=== PATIENT | male | born 1930 | race Caucasian/White ===

== ENCOUNTER 2018-10-23 09:01 | Inpatient (IN) | payer OTHER ==
[2018-10-23] MEDS ORDERED: MEPERIDINE HCL 25 MG/0.5 ML ONE ×3 (09:21→13:23)
[2018-10-23 09:26] LABS: Absolute Monocytes 0.6 K/uL (0.1-1.3); Absolute Neutrophil 2.4 K/uL (1.8-8.0); Basophils % 0.7 % (0-1.3); Eosinophils % 2.9 % (0-4.4); Hematocrit 39.2 % (39.6-49.0); Lymphocytes % 48.8 % (15.3-44.8); MCH 33.2 pg (27.0-35.0); MCV 97.9 fL (80-100); MPV 8.8 fL (7.6-11.3)
[2018-10-23 09:31] LABS: Protime INR 0.99
[2018-10-23 09:39] LABS: Potassium 3.7 mmol/L (3.5-5.1)
--- NOTE | 2018-10-23 09:46 | RAD REPORT ---
EXAM DESCRIPTION: CT - CTHCSPWOC - 10/23/2018 9:29 am CLINICAL HISTORY: Trip and fall, head and neck injury COMPARISON: None. TECHNIQUE: Axial 5 mm thick images of the head were obtained. Axial 2 mm thick images of the cervic al spine were obtained with sagittal and coronal reconstruction images generated and reviewed. All CT scans are performed using dose optimization technique as appropriate and may include automated exposure control or mA/KV adjustment according to patient size. FINDINGS: No intracranial hemorrhage, mass, edema or acute intracranial finding. No suspicion for acute infarct ion. Moderate severity atrophy and chronic ischemic changes are present. Ventricles are in proportion . Mastoid air cells and paranasal sinuses are clear. No globe or orbit abnormality seen. Cervical body height and alignment are normal. Disc space narrowing is present throughout the cervica l spine. There prominent posterior endplate spur is from C3-C7. Significant facet joint degenerative changes are present throughout the spine. Bilateral bony foraminal encroachment present at C3-4 where there is also central spinal stenosis. Similar spinal stenosis and foraminal stenosis at C4-5 with f oraminal stenosis at C5-6 and mildly at C6-7. No fracture or acute bone process. No paraspinal mass or hematoma. IMPRESSION: No intracranial hemorrhage. Patient has atrophy and chronic ischemic change moderate in severity. Ventricles are in proportion. Advanced cervical spine degenerative change as detailed. No acute findings seen. Central canal detail is inherently limited.
--- NOTE | 2018-10-23 10:10 | EKG ---
Test Date: 2018-10-23 Test Time: 10:07:26 Maternity Nurse: STEVE MEASUREMENT RESULTS: Intervals: Rate: 53 WA: 184 QRSD: 116 QT: 478 QTc: 448 [place]: P: 79 WA: 184 QRS: 8 T: 12 INTERPRETIVE STATEMENTS: Sinus bradycardia Otherwise normal ECG Compared to ECG 03/31/2013 23:24:09 Sinus rhythm no longer present Electronically Signed On 10-23-18 10:10:35 [employer] by Brent Bender
--- NOTE | 2018-10-23 11:28 | ER ---
Nurse's Notes [facility] Name: Maxwell Clark Age: 87 yrs Sex: Male : 1930 Arrival Date: 10/23/2018 Time: 09:07 Bed 6 Private MD: Diagnosis: Displaced intertrochanteric fracture of right femur Presentation: 10/23 09:13 Presenting complaint: EMS states: pt was walking with dressings applied to bilateral sg eyes post eye surgery when he tripped and fell, laceration sustained to occiptal area of head, skin tears noted to right forearm and elbow, right hip pain and right leg noted to be externally rotated, pt remains c-collared and on backboard for transport to radiology. Care prior to arrival: Cervical collar in place. Placed on backboard. IV initiated. 20 GA, in the left antecubital area, Glucose check: 80. Mechanism of Injury: Fall from standing position. Trauma event details: Injury occurred in the [facility], Injury occurred: at home. Injury occurred: October 23, 2018. 09:13 Acuity: IVY 2 sg 09:13 Method Of Arrival: EMS: [facility] 09:15 Transition of care: patient was not received from another setting of care. Onset of hb symptoms was October 23, 2018. Risk Assessment: Do you want to hurt yourself or someone else? Patient reports no desire to harm self or others. Initial Sepsis Screen: Does the patient meet any 2 criteria? No. Patient's initial sepsis screen is negative. Does the patient have a suspected source of infection? No. Patient's initial sepsis screen is negative. Trauma Activation: Alert Physician: ED Physician; Name: ; Notified At: ; Arrived At: Physician: General Surgeon; Name: ; Notified At: ; Arrived At: Physician: Radiology; Name: ; Notified At: ; Arrived At: Physician: Respiratory; Name: ; Notified At: ; Arrived At: Physician: Lab; Name: ; Notified At: ; Arrived At: Historical: - Allergies: 09:22 No Known Allergies; hb - PMHx: : None; hb - Immunization history: Last tetanus immunization: > 10 years ago. - Family history:: not pertinent. - Social history:: Smoking status: Patient/guardian denies using tobacco. - Ebola Screening: : No symptoms or risks identified at this time. - Hospitalizations: : No recent hospitalization is reported. Screenin:17 Abuse screen: Denies threats or abuse. Denies injuries from another. Tuberculosis sg screening: No symptoms or risk factors identified. Never had TB. 09:21 Nutritional screening: No deficits noted. Fall Risk Total Mena Fall Scale indicates hb High Risk Score (45 or more points). Fall prevention measures have been instituted. Side Rails Up X 2 Frequent Obs/Assessments Occuring Family Present and informed to notify staff if the need to leave the bedside As available patient and family educated on Fall Prevention Program and Strategies. Primary Survey: 09:12 A: Airway: patent, No supplemental oxygen in use on arrival. Oral cavity: clear, hb Trachea midline. Breathing/Chest: Respiratory pattern: regular, Respiratory effort: spontaneous, unlabored, Breath sounds: clear, bilaterally. Chest inspection: symmetrical rise and fall of the chest. Circulation: Pulses: palpable . Skin color: pink, Skin temperature: warm, dry. Disability Alert. 10:00 Reassessment Airway Airway Patent Breathing/Chest Respiratory pattern Regular hb Respiratory effort Spontaneous Unlabored Chest inspection Symmetrical Circulation Pulses Palpable Color [place] Disability Alert. 11:00 Reassessment Airway Airway Patent Breathing/Chest Respiratory pattern Regular hb Respiratory effort Spontaneous Unlabored Chest inspection Symmetrical Circulation Pulses Palpable Color [place] Disability Alert. 12:00 Reassessment Airway Airway Patent Breathing/Chest Respiratory pattern Regular ss Respiratory effort Spontaneous Unlabored Chest inspection Symmetrical Circulation Pulses Palpable Color [place] Disability Alert. 13:00 Reassessment Airway Airway Patent Breathing/Chest Respiratory pattern Regular ss Respiratory effort Spontaneous Unlabored Chest inspection Symmetrical Circulation Pulses Palpable Color [place] Disability Alert. 14:00 Reassessment Airway Airway Patent Breathing/Chest Respiratory pattern Regular ss Respiratory effort Spontaneous Unlabored Chest inspection Symmetrical Circulation Pulses Palpable Color [place] Disability Alert. Secondary Survey: 09:12 HEENT: Head Other laceration to back of head Eyes: Other bilateral eyes covered with hb gauze from physician's office. Gastrointestinal: No deficits noted. : No deficits noted. No signs and/or symptoms were reported regarding the genitourinary system. Musculoskeletal: Reports pain in right arm and right hip. Right leg externally rotated and shortened. Assessment: 09:15 General: Appears in no apparent distress. uncomfortable, Behavior is calm, cooperative. hb Pain: Pain currently is 7 out of 10 on a pain scale. Neuro: Level of Consciousness is awake, alert, obeys commands, Oriented to person, place, time, situation. EENT: No signs and/or symptoms were reported regarding the EENT system. Cardiovascular: Heart tones S1 S2 present Capillary refill < 3 seconds Patient's skin is warm and dry. Respiratory: Airway is patent Trachea midline Respiratory effort is even, unlabored, Respiratory pattern is regular, symmetrical, Breath sounds are clear bilaterally. GI: Abdomen is non-distended, Bowel sounds present X 4 quads. Abd is soft and non tender X 4 quads. : No signs and/or symptoms were reported regarding the genitourinary system. Derm: Skin is pink, warm \T\ dry. Musculoskeletal: Reports pain in right upper arm and right hip. Laceration to back of head noted, not bleeding at this time. 10:19 Reassessment: Patient appears in no apparent distress at this time. Patient and/or sg family updated on plan of care and expected duration. Pain level reassessed. Patient is alert, oriented x 3, equal unlabored respirations, skin warm/dry/pink. pt removed from blackboard per ERP order, pt reports feeling better after removal from backboard. 11:00 Reassessment: Patient appears in no apparent distress at this time. Patient and/or hb family updated on plan of care and expected duration. Pain level reassessed. Patient is alert, oriented x 3, equal unlabored respirations, skin warm/dry/pink. 11:00 Cardiovascular: Pulses are palpable in right radial artery, right posterior tibial sg artery, left radial artery and left posterior tibial artery. Musculoskeletal: Circulation, motion, and sensation intact. Capillary refill is brisk, in bilateral fingers. toes. Swelling absent. Musculoskeletal: pt reports ROM to be limited in right leg d/t pain. 12:00 Reassessment: Patient appears in no apparent distress at this time. Patient and/or ss family updated on plan of care and expected duration. Pain level reassessed. Patient is alert, oriented x 3, equal unlabored respirations, skin warm/dry/pink. 13:00 Reassessment: Patient appears in no apparent distress at this time. No changes from ss previously documented assessment. Patient and/or family updated on plan of care and expected duration. Pain level reassessed. Patient is alert, oriented x 3, equal unlabored respirations, skin warm/dry/pink. 14:00 Reassessment: Patient appears in no apparent distress at this time. Patient and/or ss family updated on plan of care and expected duration. Pain level reassessed. Patient is alert, oriented x 3, equal unlabored respirations, skin warm/dry/pink. Vital Signs: 09:15 BP 156 / 97; Pulse 66; Resp 17; Temp 97.7; Pulse Ox 100% on R/A; Weight 106.59 kg (R); sg Height 6 ft. 0 in. (182.88 cm); Pain 7/10; 10:15 BP 172 / 71; Pulse 60; Resp 16; Temp 97.7; Pulse Ox 100% on R/A; sg 11:00 BP 163 / 70; Pulse 58; Resp 15; Pulse Ox 100% on R/A; Pain 4/10; hb 12:00 BP 147 / 74; Pulse 70; Resp 15; Pulse Ox 100% on R/A; Pain 3/10; ss 13:00 BP 159 / 74; Pulse 74; Resp 16; Pulse Ox 100% on R/A; Pain 4/10; ss 14:00 BP 146 / 68; Pulse 69 MON; Resp 17; Pulse Ox 96% on R/A; Pain 4/10; sg 09:15 Body Mass Index 31.87 (106.59 kg, 182.88 cm) sg [place] Coma Score: 09:15 Eye Response: spontaneous(4). Verbal Response: oriented(5). Motor Response: obeys sg commands(6). Total: 15. 10:15 Eye Response: spontaneous(4). Verbal Response: oriented(5). Motor Response: obeys sg commands(6). Total: 15. 14:00 Eye Response: spontaneous(4). Verbal Response: oriented(5). Motor Response: obeys sg commands(6). Total: 15. Trauma Score (Adult): 09:15 Eye Response: spontaneous(1); Verbal Response: oriented(1); Motor Response: obeys sg commands(2); Systolic BP: > 89 mm Hg(4); Respiratory Rate: 10 to 29 per min(4); [place] Score: 15; Trauma Score: 12 10:15 Eye Response: spontaneous(1); Verbal Response: oriented(1); Motor Response: obeys sg commands(2); Systolic BP: > 89 mm Hg(4); Respiratory Rate: 10 to 29 per min(4); [place] Score: 15; Trauma Score: 12 11:00 Eye Response: spontaneous(1); Verbal Response: oriented(1); Motor Response: obeys hb commands(2); Systolic BP: > 89 mm Hg(4); Respiratory Rate: 10 to 29 per min(4); [place] Score: 15; Trauma Score: 12 12:00 Eye Response: spontaneous(1); Verbal Response: oriented(1); Motor Response: obeys ss commands(2); Systolic BP: > 89 mm Hg(4); Respiratory Rate: 10 to 29 per min(4); [place] Score: 15; Trauma Score: 12 13:00 Eye Response: spontaneous(1); Verbal Response: oriented(1); Motor Response: obeys ss commands(2); Systolic BP: > 89 mm Hg(4); Respiratory Rate: 10 to 29 per min(4); [place] Score: 15; Trauma Score: 12 14:00 Eye Response: spontaneous(1); Verbal Response: oriented(1); Motor Response: obeys sg commands(2); Systolic BP: > 89 mm Hg(4); Respiratory Rate: 10 to 29 per min(4); [place] Score: 15; Trauma Score: 12 ED Course: 09:07 Patient arrived in ED. rn 09:07 Christos Lauren MD is Attending Physician. rn 09:13 Jadiel Foster, RN is Primary Nurse. sg 09:15 Triage completed. sg 09:16 Arm band placed on right wrist. hb 09:16 Patient has correct armband on for positive identification. Placed in gown. Bed in low hb position. Call light in reach. Side rails up X2. monitoring engineer on. Pulse ox on. NIBP on. 09:16 Thermoregulation: warm blanket given to patient. hb 09:16 Patient maintains SpO2 saturation greater than 95% on room air. hb 09:21 CT completed. Patient tolerated procedure well. Patient moved to CT via stretcher. Patient moved back from CT. 09:23 Patient moved to radiology. 10:29 Assist provider with laceration repair on back of head that was between 2.6 to 7.5 cm hb using alise x 5. Set up tray. Performed by Christos Lauren MD Patient tolerated well. 11:27 Chauncey Carson MD is Hospitalizing Provider. rn 14:25 Patient admitted, IV remains in place. ss Administered Medications: 09:17 Drug: Demerol 25 mg Route: IVP; Site: left antecubital; hb 10:15 Follow up: Response: No adverse reaction; Pain is unchanged, physician notified sg 10:33 Drug: Demerol 25 mg Route: IVP; Site: left antecubital; hb 11:01 Follow up: Response: No adverse reaction; Pain is decreased hb 13:19 Drug: Demerol 25 mg Route: IVP; Site: left antecubital; hb 14:00 Follow up: Response: No adverse reaction; Pain is decreased hb 14:15 Drug: Tetanus-Diphtheria Toxoid Adult 0.5 ml {Customer Consulting Manager: [employer]. Exp: 12/07/2020. Lot #: [id number]. } Route: IM; Site: right deltoid; 14:40 Follow up: Response: No adverse reaction hb Intake: 09:15 PO: 0ml; Total: 0ml. sg Outcome: 11:28 Decision to Hospitalize by Provider. rn 11:39 Patient's length of stay in the Emergency Department was greater than 2 hours. hb admission ordered, awaiting room assignment Patient's length of stay extended due to 14:24 Admitted to Med/surg accompanied by tech, family with patient, via stretcher, room 201. ss 14:24 Condition: stable 14:24 Instructed on the need for admit, Demonstrated understanding of instructions. 14:49 Patient left the ED. ss Signatures: Jadiel Foster RN RN sg Jones, Susan sj Nieto, Roman, MD MD rn Smirch, Shelby, RN RN Lindsay Richard RN RN hb
--- NOTE | 2018-10-23 11:29 | EDPHYS ---
Physician Documentation [facility] Name: Maxwell Clark Age: 87 yrs Sex: Male : 1930 Arrival Date: 10/23/2018 Time: 09:07 Bed 6 Private MD: ED Physician Christos Lauren HPI: 10/23 09:11 This 87 yrs old Male presents to ER via Unassigned with complaints of fall. rn 09:11 The patient presents with an injury, pain. The complaints affect the right hip. Onset: rn The symptoms/episode began/occurred just prior to arrival. Modifying factors: The symptoms are alleviated by nothing. the symptoms are aggravated by movement. Severity of symptoms: At their worst the symptoms were moderate, in the emergency department the symptoms are unchanged. The patient has not experienced similar symptoms in the past. Just had eye surgery yesterday for eyelid drooping, both eyes bandaged, was being assisted out of garage, tripped on uneven floor, hit back of head, no LOC, denies blood thinners, reports scraped right arm and right hip hurts to move. . Historical: - Allergies: :22 No Known Allergies; hb - PMHx: :22 None; hb - Immunization history: Last tetanus immunization: > 10 years ago. - Family history:: not pertinent. - Social history:: Smoking status: Patient/guardian denies using tobacco. - Ebola Screening: : No symptoms or risks identified at this time. - Hospitalizations: : No recent hospitalization is reported. ROS: 09:11 Constitutional: Negative for fever, chills, and weight loss, Eyes: Negative for injury rn Neck: No neck pain or swelling Cardiovascular: Negative for chest pain, palpitations, and edema, Respiratory: Negative for shortness of breath, cough, wheezing, and pleuritic chest pain, Abdomen/GI: Negative for abdominal pain, nausea, vomiting, diarrhea, and constipation, MS/Extremity: + right arm and right hip pain Skin: Negative for injury, rash, and discoloration, Neuro: Negative for headache, weakness, numbness, tingling, and seizure. Exam: 09:11 Constitutional: This is a well developed, well nourished patient who is awake, alert, rn and in no acute distress. Head/Face: Normocephalic, dry blood right posterior scalp, unable to visualized laceration with ccollar on, but no active bleeding or pooling. Eyes: Bilateral bandages on eyes that are undisturbed. Neck: in ccollar, no midline tenderness Cardiovascular: Regular rate and rhythm with a normal S1 and S2. No gallops, murmurs, or rubs. No pulse deficits. Respiratory: Lungs have equal breath sounds bilaterally, clear to auscultation. No increased work of breathing, no retractions or nasal flaring. Abdomen/GI: soft, non-tender MS/ Extremity: Pulses equal, no cyanosis. Neurovascular intact. + RLE externally rotated and shortened, with painful ROM right hip. Neuro: Awake and alert, GCS 15, oriented to person, place, time, and situation. Cranial nerves II-XII grossly intact. Motor strength 5/5 in all extremities. Sensory grossly intact. Vital Signs: 09:15 BP 156 / 97; Pulse 66; Resp 17; Temp 97.7; Pulse Ox 100% on R/A; Weight 106.59 kg (R); sg Height 6 ft. 0 in. (182.88 cm); Pain 7/10; 10:15 BP 172 / 71; Pulse 60; Resp 16; Temp 97.7; Pulse Ox 100% on R/A; sg 11:00 BP 163 / 70; Pulse 58; Resp 15; Pulse Ox 100% on R/A; Pain 4/10; hb 12:00 BP 147 / 74; Pulse 70; Resp 15; Pulse Ox 100% on R/A; Pain 3/10; ss 13:00 BP 159 / 74; Pulse 74; Resp 16; Pulse Ox 100% on R/A; Pain 4/10; ss 14:00 BP 146 / 68; Pulse 69 MON; Resp 17; Pulse Ox 96% on R/A; Pain 4/10; sg 09:15 Body Mass Index 31.87 (106.59 kg, 182.88 cm) John Coma Score: 09:15 Eye Response: spontaneous(4). Verbal Response: oriented(5). Motor Response: obeys sg commands(6). Total: 15. 10:15 Eye Response: spontaneous(4). Verbal Response: oriented(5). Motor Response: obeys sg commands(6). Total: 15. 14:00 Eye Response: spontaneous(4). Verbal Response: oriented(5). Motor Response: obeys sg commands(6). Total: 15. Trauma Score (Adult): 09:15 Eye Response: spontaneous(1); Verbal Response: oriented(1); Motor Response: obeys sg commands(2); Systolic BP: > 89 mm Hg(4); Respiratory Rate: 10 to 29 per min(4); Warren Score: 15; Trauma Score: 12 10:15 Eye Response: spontaneous(1); Verbal Response: oriented(1); Motor Response: obeys sg commands(2); Systolic BP: > 89 mm Hg(4); Respiratory Rate: 10 to 29 per min(4); John Score: 15; Trauma Score: 12 11:00 Eye Response: spontaneous(1); Verbal Response: oriented(1); Motor Response: obeys hb commands(2); Systolic BP: > 89 mm Hg(4); Respiratory Rate: 10 to 29 per min(4); John Score: 15; Trauma Score: 12 12:00 Eye Response: spontaneous(1); Verbal Response: oriented(1); Motor Response: obeys ss commands(2); Systolic BP: > 89 mm Hg(4); Respiratory Rate: 10 to 29 per min(4); John Score: 15; Trauma Score: 12 13:00 Eye Response: spontaneous(1); Verbal Response: oriented(1); Motor Response: obeys ss commands(2); Systolic BP: > 89 mm Hg(4); Respiratory Rate: 10 to 29 per min(4); John Score: 15; Trauma Score: 12 14:00 Eye Response: spontaneous(1); Verbal Response: oriented(1); Motor Response: obeys sg commands(2); Systolic BP: > 89 mm Hg(4); Respiratory Rate: 10 to 29 per min(4); John Score: 15; Trauma Score: 12 Laceration: 10:25 Wound Repair of 5cm ( 2.0in ) subcutaneous laceration to right posterior scalp. Distal rn neuro/vascular/tendon intact. Wound prep: Extensive cleansing by nurse, Wound irrigation by nurse. Skin closed with 5 wide salud Salud using staple gun. Dressed with Kerlix. Patient tolerated well. MDM: 09:07 Patient medically screened. rn 11:26 Differential diagnosis: closed fracture, contusion. Data reviewed: vital signs, nurses rn notes, lab test result(s), EKG, radiologic studies, and as a result, I will admit patient. Counseling: I had a detailed discussion with the patient and/or guardian regarding: the historical points, exam findings, and any diagnostic results supporting the discharge/admit diagnosis, lab results, radiology results, the need for further work-up and treatment in the hospital. Response to treatment: the patient's symptoms have markedly improved after treatment, and as a result, I will admit patient. Admission orders: after a detailed discussion of the patient's condition and case, the admit orders are written by me. ED course: + right hip fracture, will admit to hospitalist service with Dr. Rinaldi consult.. 10/23 09:09 Order name: CBC with Diff; Complete Time: 09:44 rn 10/23 09:09 Order name: Basic Metabolic Panel; Complete Time: 09:44 rn 10/23 09:09 Order name: PT-INR; Complete Time: 09:44 rn 10/23 09:09 Order name: Ptt, Activated; Complete Time: 09:44 rn 10/23 10:25 Order name: TS 10/23 11:12 Order name: ABO/RH no charge; Complete Time: 11:29 EDIN 10/23 09:09 Order name: CT Head C Spine rn 10/23 09:09 Order name: XRAY Pelvis rn 10/23 09:09 Order name: XRAY Femur RIGHT rn 10/23 09:48 Order name: CT; Complete Time: 10:10 EDIN 10/23 11:46 Order name: Type and Screen; Complete Time: 12:09 EDMS 10/23 12:19 Order name: RAD; Complete Time: 13:30 EDMS 10/23 12:19 Order name: RAD; Complete Time: 13:30 EDMS 10/23 09:09 Order name: IV Start; Complete Time: 09:17 rn 10/23 09:09 Order name: EKG; Complete Time: 09:10 rn 10/23 09:09 Order name: EKG - Nurse/Tech; Complete Time: 10:29 rn Administered Medications: 09:17 Drug: Demerol 25 mg Route: IVP; Site: left antecubital; hb 10:15 Follow up: Response: No adverse reaction; Pain is unchanged, physician notified sg 10:33 Drug: Demerol 25 mg Route: IVP; Site: left antecubital; hb 11:01 Follow up: Response: No adverse reaction; Pain is decreased hb 13:19 Drug: Demerol 25 mg Route: IVP; Site: left antecubital; hb 14:00 Follow up: Response: No adverse reaction; Pain is decreased hb 14:15 Drug: Tetanus-Diphtheria Toxoid Adult 0.5 ml {Channel Marketing Specialist: [employer]. Exp: sg 12/07/2020. Lot #: [id number]. } Route: IM; Site: right deltoid; 14:40 Follow up: Response: No adverse reaction hb Disposition: 10/23/18 11:28 Hospitalization ordered by Chauncey Carson for Inpatient Admission. Preliminary diagnosis is Displaced intertrochanteric fracture of right femur. - Bed requested for Telemetry/MedSurg (Inpatient). - Status is Inpatient Admission. ss - Condition is Stable. - Problem is new. - Symptoms have improved. UTI on Admission? No Signatures: Dispatcher [employer] EDAmalia Villanueva RN RN Jadiel Foster RN RN Christos Lauren MD MD rn Smirch, Shelby, RN RN Lindsay Richard RN RN hb Herrera, Deanna 3 Corrections: (The following items were deleted from the chart) 12: 11:28 Hospitalization Ordered by Chauncey Carson MD for Inpatient Admission. Preliminary 3 diagnosis is Displaced intertrochanteric fracture of right femur. Bed requested for Telemetry/MedSurg (Inpatient). Status is Inpatient Admission. Condition is Stable. Problem is new. Symptoms have improved. UTI on Admission? No. rn 13:34 12:27 10/23/2018 11:28 Hospitalization Ordered by Chauncey Carson MD for Inpatient dw Admission. Preliminary diagnosis is Displaced intertrochanteric fracture of right femur. Bed requested for Telemetry/MedSurg (Inpatient). Status is Inpatient Admission. Condition is Stable. Problem is new. Symptoms have improved. UTI on Admission? No. dh3 14:49 13:34 10/23/2018 11:28 Hospitalization Ordered by Chauncey Carson MD for Inpatient ss Admission. Preliminary diagnosis is Displaced intertrochanteric fracture of right femur. Bed requested for Telemetry/MedSurg (Inpatient). Status is Inpatient Admission. Condition is Stable. Problem is new. Symptoms have improved. UTI on Admission? No. dw
--- NOTE | 2018-10-23 12:17 | RAD REPORT ---
EXAM DESCRIPTION: RAD - Pelvis - 10/23/2018 9:54 am CLINICAL HISTORY: Pelvic pain status post fall FINDINGS: Intertrochanteric fracture involves the proximal right femur extending into the greater an d lesser trochanters. Lesser trochanter is avulsed medially. Moderate displacement of fracture fragme nts. No dislocation seen
--- NOTE | 2018-10-23 12:18 | RAD REPORT ---
EXAM DESCRIPTION: RAD - Femur Right - 10/23/2018 9:55 am CLINICAL HISTORY: Right leg pain status post fall FINDINGS: Intertrochanteric fracture involves the proximal right femur extending into the greater and lesser tr ochanters. Lesser trochanter is avulsed medially. Moderate displacement of fracture fragments. No dislocation seen
[2018-10-23] MEDS ORDERED: TETANUS & DIPHTHERIA TOX,ADULT 0.5 ML VIAL ONE (14:21)
[2018-10-23 15:41] VITALS: BMI 27.2
[2018-10-23] MEDS: NA CHLORIDE 0.9% 1,000 ML IV SCH (16:38)
[2018-10-23] MEDS: MORPHINE 2 MG/ML SYR IV PRN ×2 (16:39→21:46)
[2018-10-23] MEDS ORDERED: POTASSIUM 25 MEQ EFFERV TAB PO ONE (19:04)
--- NOTE | 2018-10-23 21:58 | P.HP ---
Certification for Inpatient Patient admitted to: Inpatient With expected LOS: >2 Midnights Practitioner: I am a practitioner with admitting privileges, knowledge of patient current condition, hospital course, and medical plan of care. Services: Services provided to patient in accordance with Admission requirements found in Title 42 Section 412.3 of the Code of Federal Regulations Patient History Date of Service: 10/24/18 Reason for admission: Fall History of Present Illness: This is a 87-year-old male with no past medical history admitted for a fall. Per patient, he had eyelid surgery with Dr. Banerjee. When they got home, he stepped on an uneven floor and fell on his right side. He was having a lot of pain on the right leg which brought him to the hospital. In the ER, he was evaluated with imaging which showed a right intertrochanteric fracture of the femur. He also had a laceration to the back of the head, which required alise. He also noted a laceration on the right elbow. He was admitted for further evaluation/treatment. At the time of my exam, patient was in mild distress secondary to pain, he was hemodynamically stable and otherwise had no complaints. Allergies No Known Allergies Allergy (Verified 04/01/13 01:36) Home Medications: Acetaminophen [Arthritis Pain Relief] 650 mg PO DAILY 10/23/18 Ketoconazole 1 jassi TP BID 10/23/18 Lisinopril 10 mg PO BEDTIME 10/23/18 Lutein 20 mg PO DAILY 10/23/18 Multivitamin [Multivitamins] 1 cap PO DAILY 10/23/18 Wise-3 Fatty Acids/Fish Oil [Fish Oil 1,000 mg Capsule] 1,000 mg PO DAILY 10/23 Pantoprazole Sodium 40 mg PO DAILY 10/23/18 - Past Medical/Surgical History Has patient received pneumonia vaccine in the past: Yes Diabetic: No -: arthritis -: abd. exploratory sx -: bilateral cataracts sx -: tonsillectomy -: broken wrist repair -: anal fistula -: bilateral eyelid sx 10/22/18 - Social History Smoking Status: Never smoker Alcohol use: No CD- Drugs: No Caffeine use: Yes Place of Residence: Home Review of Systems General: Unremarkable Eyes: Eyelid Inflammation (Status post surgery), As per HPI ENT: Unremarkable Respiratory: Unremarkable Cardiovascular: Unremarkable Gastrointestinal: Unremarkable Genitourinary: Unremarkable Musculoskeletal: Leg Pain, As per HPI Integumentary: Unremarkable Neurological: Unremarkable Lymphatics: Unremarkable Physical Examination - Vital Signs Temperature: 97.0 F Blood Pressure: 164/75 Pulse: 62 Respirations: 18 Pulse Ox (%): 95 - Physical Exam General: Alert, Oriented x3, Mild distress HEENT: Atraumatic, PERRLA, Mucous membr. moist/pink, EOMI, Sclerae nonicteric Neck: Supple, 2+ carotid pulse no bruit, No LAD, Without JVD or thyroid abnormality Respiratory: Clear to auscultation bilaterally, Normal air movement Cardiovascular: Regular rate/rhythm, Normal S1 S2 Gastrointestinal: Normal bowel sounds, No tenderness Musculoskeletal: Tenderness (With any movement of hip area), Other (Laceration on right elbow. No pain or crepitation on joint movement at the elbow, shoulder or wrist) Integumentary: Other (Laceration to back of head, with alise in place. No active bleeding noted) Neurological: Normal speech, Normal tone, Normal affect Lymphatics: No axilla or inguinal lymphadenopathy - Studies Laboratory Data (last 24 hrs) 10/23/18 09:12: PT 11.7, INR 0.99, APTT 25.1 10/23/18 09:12: Sodium 142, Potassium 3.7, BUN 13, Creatinine 1.00, Glucose 107 H 10/23/18 09:12: WBC 6.2, Hgb 13.3 L, Hct 39.2 L, Plt Count 178 Assessment and Plan - Plan THis is a 87 yr old male with: s/p mechanical fall Right displaced intertrocanteric fracture of the femur Dr. Rinaldi consulted. Pain control NPO after midnight DVT prophylaxis: SCDs GI prophylaxis: None Diet: Regular diet, NPO after midnight Disposition: Pending orthopedic surgery evaluation, symptomatic improvement. Continue pain control. - Advance Directives Does patient have a Living Will: Yes Does patient have a Durable POA for Healthcare: Yes Physician Review: Patient Assessed, Agree with Above Assessment and Plan Time Spent Managing Pts Care (In Minutes): 55
[2018-10-24] MEDS: MORPHINE 2 MG/ML SYR IV PRN ×4 (02:15→21:21)
--- NOTE | 2018-10-24 05:16 | CON ---
Date of Consultation: 10/23/2018 History Of Present Illness: This is my first time seeing this patient to my knowledge. He is an 87- year-old male who unfortunately fell earlier today injuring his right lower extremity as well as his right elbow and his head. He was seen and examined in the emergency department where he had alise placed to his scalp. He also has a bandage on his elbow from a skin tear. X-rays; however, unfortun ately demonstrated a displaced intertrochanteric femur fracture on the right. On further review of h is history, family states that he is highly active and he does not use assistive devices to walk. Ot herwise, medically, he apparently is doing fairly well. He has had a recent history of eye surgery, but this appears to be doing well. With palpation of all his long bones or joints, he does have some tenderness of his right elbow; however, he has full range of motion without crepitation. With regar d to his right lower extremity, he has no pain at the elbow or knee; however, any movement or manipul ation of the hip causes pain. Review of x-rays does demonstrate a displaced intertrochanteric fractu re on the right. Assessment: Gentleman with a bruise to his elbow as well as a laceration to his scalp, which was sonja ated by alise also with a displaced right intertrochanteric fracture. Plan: At this time, I spoke with the hospitalist who feels that he is appropriate for surgical inter vention. They will make him n.p.o. after midnight and use SCDs. I have discussed with both he and saad is family risks, benefits, and alternatives to operative intervention. At this time, we will plan fo r closed reduction and intramedullary jonathan fixation tomorrow at noon. He says he understands these things as presented and all of his questions have been answered. /WILLIS Voice ID: [id number] Report ID: [id number]
[2018-10-24 05:27] LABS: Absolute Lymphocytes (CBC) 1.3 K/uL (0.7-4.9); Absolute Neutrophil 5.4 K/uL (1.8-8.0); Basophils % 0.5 % (0-1.3); Eosinophils % 0.4 % (0-4.4); Hematocrit 32.8 % (39.6-49.0); MCH 33.4 pg (27.0-35.0); MCV 96.8 fL (80-100); MPV 9.4 fL (7.6-11.3); Monocytes % 12.8 % (3.3-12.3); RBC Red Blood Cell Count 3.39 M/uL (4.33-5.43)
[2018-10-24] MEDS: NA CHLORIDE 0.9% 1,000 ML IV SCH ×2 (05:37→22:28)
[2018-10-24 05:44] LABS: ALT/SGPT 16 U/L (12-78); AST/SGOT 11 U/L (15-37); Alkaline Phosphatase 76 U/L (45-117); BUN Blood Urea Nitrogen 11 mg/dL (7-18); Bicarbonate 29 mmol/L (21-32); Bilirubin Total 0.6 mg/dL (0.2-1.0); Glucose Level 111 mg/dL (74-106); Protein, Total 6.3 g/dL (6.4-8.2); Sodium Level 139 mmol/L (136-145)
[2018-10-24 07:03] LABS: Phosphorus 2.6 mg/dL (2.5-4.9)
[2018-10-24] MEDS ORDERED: PROPOFOL 200 MG/20 ML VIAL IV ONE (11:26)
[2018-10-24] MEDS ORDERED: FENTANYL CITR 100 MCG/2 ML ONE ×2 (11:26→12:40)
[2018-10-24] MEDS ORDERED: LIDOCAINE 2% MPF 5 ML VIAL ONE (11:27)
[2018-10-24] MEDS ORDERED: Ringers Lactate 1,000 ML IV ONE ×2 (11:34→13:45)
[2018-10-24] MEDS ORDERED: TRANEXAMIC ACID 1,000 MG in NA CHLORIDE 0.9% 50 ML IV ONE (12:04)
--- NOTE | 2018-10-24 12:04 | P.PN ---
Subjective Date of Service: 10/24/18 Chief Complaint: Fall Subjective: No new changes, No C/O voiced Patient seen and examined at bedside. Family at bedside. Chart reviewed and case discussed with nursing staff. Review of Systems As noted Physical Examination - Vital Signs Temperature: 97.0 F Blood Pressure: 164/75 Pulse: 62 Respirations: 18 Pulse Ox (%): 95 - Physical Exam General: Alert, In no apparent distress, Oriented x3 HEENT: Atraumatic, PERRLA, EOMI Neck: Supple, JVD not distended Respiratory: Clear to auscultation bilaterally, Normal air movement Cardiovascular: Regular rate/rhythm, Normal S1 S2 Gastrointestinal: Normal bowel sounds, No tenderness Musculoskeletal: Tenderness (With any movement of hip) Integumentary: Other (Laceration of right elbow, scalp. No active bleeding noted) Neurological: Normal speech, Normal tone, Normal affect Lymphatics: No axilla or inguinal lymphadenopathy Assessment And Plan - Plan THis is a 87 yr old male with: s/p mechanical fall Right displaced intertrocanteric fracture of the femur Dr. Rinaldi consulted. Recommendations appreciated. Pain control He is pending his surgery today. DVT prophylaxis: SCDs GI prophylaxis: None Diet: NPO for surgery, will restart regular diet when tolerating. Disposition: Pending hip surgery. He will need rehab/physical therapy post surgery. We will get social work involved for discharge planning Physician Review: Patient Assessed, Agree with Above Assessment and Plan Time Spent Managing PTS Care (In Minutes): 30
[2018-10-24] MEDS ORDERED: CEFAZOLIN 1GM (PREMIX IV) 2 GM/100 ML BAG ONE (12:13)
[2018-10-24] MEDS ORDERED: EPHEDRINE SULF 50 MG/10 ML SYR ONE (12:46)
--- NOTE | 2018-10-24 14:24 | P.BOP ---
Preoperative diagnosis: right proximal femur fracture Postoperative diagnosis: same Primary procedure: right CAMERON fixation of hip Estimated blood loss: 150 ccs Anesthesia: General Transferred to: Recovery Room Condition: Good
--- NOTE | 2018-10-24 16:28 | RAD REPORT ---
EXAM DESCRIPTION: RAD - Hip In Or - 10/24/2018 3:19 pm FINDINGS: There were 7 portable C-arm views obtained during fluoroscopic assisted placement of fract ure fixation hardware. Fluoro time was 6.3 minutes. Spot images show stepwise placement of fracture fixation hardware. No suspicious or unexpected findin g.
[2018-10-24] MEDS: ONDANSETRON 4 MG/2 ML VIAL IV PRN ×2 (18:03→22:24)
[2018-10-25] MEDS ORDERED: CEFAZOLIN/NS 1gm 1 GM/50 ML BAG IVPB SCH (01:00)
[2018-10-25] MEDS ORDERED: CEFAZOLIN 1GM (PREMIX IV) 1 GM/50 ML BAG ONE (01:39)
--- NOTE | 2018-10-25 01:50 | OP ---
Date of Procedure: 10/24/2018 Surgeon: Jadiel Rinaldi MD Preoperative Diagnosis: Right proximal femur fracture. Postoperative Diagnoses: Right proximal femur fracture with intertrochanteric fracture and subtrocha nteric features. Procedure: Combination of open and closed reduction with intramedullary jonathan fixation using the Biome t nail. Estimated Blood Loss: 150 cc. Complications: There were no complications. Specimens: No pathology specimens sent. Indications For Operation: Mr. Clark is an 87-year-old male who unfortunately fell injuring his rig ht lower extremity. He was seen and examined in the emergency department where x-rays were taken, wh ich demonstrated an abrasion to his elbow as well as pain in his hip. X-rays of his hip demonstrated a comminuted proximal femur fracture. All risks, benefits, and alternatives to fixation were discus sed with the patient and the family. They state they understand things as presented and wished to pr oceed. Description Of Procedure: The patient was taken to the operating room and placed in the supine posit ion. General anesthesia was obtained by staff. Following this, he was then placed on the fracture t able. All his bony prominences being checked. Attempts to close reduce this were performed. Once t raction was performed on the leg, it was obvious that this had subtrochanteric features as well as an intertrochanteric component that appeared to be multi-fragmentary including the base of the neck to the IP area as well as a very large portion associated with the lesser trochanter. Traction and manu al reduction techniques were unable to obtain an excellent reduction, however, was better aligned. F ollowing this, the right lower extremity was then prepped and draped in usual sterile fashion for pro cedure. Following this, the guide for the intramedullary jonathan was placed next to the presumed tip of the greater trochanter and an incision was made directly to the lateral thigh. This leads down to th e fracture itself. Combination of bone hook and manipulative reduction techniques using internal and external rotation as well as traction and adductions were used which obtained a fairly good alignmen t. Unfortunately, the pieces were segmentally fragmented not allowing an anatomic reduction. Follow ing this being achieved, attention was then turned superiorly where a standard incision was made slig htly higher than normal to allow for placement of a more medially directed entry portal. Attempts at medially directing this were made somewhat more difficult by the basicervical component of the fract ure. Unfortunately, this did end up more lateral than desired and near the intertrochanteric portion of the fracture. Attempts were made to more medialize this before making the final hole and passing a wire. However, it was extremely difficult to bring these as medial as possible and the entry ream er was then used. Decision was made to proceed with a long intramedullary nail based on its signific ant instability and it was then sequentially reamed up to a size 12-1/2 holding the reduction as best can with a bone hook. The foot is in external rotation to allow for better alignment, placing the r od also externally rotated to match the femoral head and neck. The jonathan was then placed at the approp riate depth and biplanar C-arm radiography were used to confirm placement of the cephalomedullary scr ew. The compression technique was used, which did help a little to bring the head and neck portion c loser to the shaft. After this, an antirotation screw was placed as well as a distal locking screw u sing the perfect [place] technique. The wounds were then copiously irrigated and the fascia was close d in a watertight fashion using heavy Vicryl followed by closure of the skin with Vicryl followed by alise. The patient was then awakened and taken to recovery room in good condition. There were no complications. JAVAD Voice ID: [id number] Report ID: [id number]
[2018-10-25] MEDS: PANTOPRAZOLE 40MG TABLET PO SCH (06:02)
[2018-10-25 06:35] LABS: Absolute Lymphocytes (CBC) 1.4 K/uL (0.7-4.9); Absolute Monocytes 1.7 K/uL (0.1-1.3); Absolute Neutrophil 9.7 K/uL (1.8-8.0); Basophils % 0.3 % (0-1.3); Hematocrit 28.6 % (39.6-49.0); Lymphocytes % 11.1 % (15.3-44.8); MCH 33.5 pg (27.0-35.0); MCV 96.6 fL (80-100); MPV 9.2 fL (7.6-11.3); Monocytes % 13.2 % (3.3-12.3); RBC Red Blood Cell Count 2.96 M/uL (4.33-5.43)
[2018-10-25 06:57] LABS: Albumin 2.6 g/dL (3.4-5.0); Bilirubin Total 0.5 mg/dL (0.2-1.0); Potassium 4.3 mmol/L (3.5-5.1); Protein, Total 5.8 g/dL (6.4-8.2)
[2018-10-25] MEDS: MORPHINE 2 MG/ML SYR IV PRN (07:56)
[2018-10-25] MEDS: ONDANSETRON 4 MG/2 ML VIAL IV PRN (07:57)
[2018-10-25] MEDS: NA CHLORIDE 0.9% 1,000 ML IV SCH ×2 (09:56→20:51)
[2018-10-25] MEDS: CEFAZOLIN/SWI 1gm 1 GM/10 ML SYR IV SCH ×2 (09:57→16:52)
[2018-10-25] MEDS: DOCUSATE NA 100 MG CAP PO PRN ×2 (10:50→20:51)
--- NOTE | 2018-10-25 11:49 | P.PN ---
Subjective Date of Service: 10/25/18 Chief Complaint: Fall Subjective: No new changes, No C/O voiced, Improving Patient seen and examined at bedside. Family at bedside. Chart reviewed and case discussed with nursing staff. Reports improved pain. States he has not had a bowel movement for a while, he does not want to eat until he has a bowel movement. Review of Systems As noted Physical Examination - Vital Signs Temperature: 98.4 F Blood Pressure: 130/60 Pulse: 91 Respirations: 16 Pulse Ox (%): 90 - Physical Exam General: Alert, In no apparent distress, Oriented x3 HEENT: Atraumatic, PERRLA, EOMI Neck: Supple, JVD not distended Respiratory: Clear to auscultation bilaterally, Normal air movement Cardiovascular: Regular rate/rhythm, Normal S1 S2 Gastrointestinal: Normal bowel sounds, No tenderness Musculoskeletal: Tenderness Integumentary: No rashes Neurological: Normal speech, Normal tone, Normal affect Assessment And Plan - Plan THis is a 87 yr old male with: s/p mechanical fall Right displaced intertrocanteric fracture of the femur Dr. Rinaldi consulted. Recommendations appreciated. Status post combination located close reduction with jonathan fixation, postop day 1. Pain control with medications Colace added Physical therapy consultation placed, encouraged patient to work with physical therapy as much as possible. Will start discharge planning, social work involved. Essential Hypertension Restarted home medication Stable at this time. Will continue to monitor DVT prophylaxis: SCDs GI prophylaxis: None Diet: Regular diet. Disposition: Pending symptomatic improvement, working with physical therapy. He will need rehab/physical therapy post surgery. Social work involved for discharge planning Physician Review: Patient Assessed, Agree with Above Assessment and Plan Time Spent Managing PTS Care (In Minutes): 35
[2018-10-25 12:41] LABS: Urine Appearance CLEAR; Urine Bilirubin NEGATIVE (NEG); Urine Blood NEGATIVE (NEG); Urine Color YELLOW; Urine Glucose NEGATIVE (NEG); Urine Protein TRACE (NEG); Urine Urobilinogen 0.2 mg/dL (0.2-1.0); Urine pH 5.5 (5.0-7.0)
[2018-10-25 12:50] LABS: Urine Microscopic Reflex ORDER UMIC
[2018-10-25 13:10] LABS: Urine Bacteria 20-50 /HPF (NONE SEEN); Urine Culture Reflex Order REFLEXED; Urine RBC NONE SEEN /HPF (NONE SEEN)
[2018-10-25] MEDS: LISINOPRIL 10 MG TAB PO SCH (20:47)
[2018-10-26] MEDS: MORPHINE 2 MG/ML SYR IV PRN ×4 (00:50→19:21)
[2018-10-26 05:40] LABS: Absolute Lymphocytes (CBC) 1.3 K/uL (0.7-4.9); Absolute Monocytes 1.3 K/uL (0.1-1.3); Absolute Neutrophil 6.9 K/uL (1.8-8.0); Basophils % 0.4 % (0-1.3); Eosinophils % 1.1 % (0-4.4); Hematocrit 24.5 % (39.6-49.0); Lymphocytes % 13.3 % (15.3-44.8); MCH 33.9 pg (27.0-35.0); MCV 96.2 fL (80-100); MPV 8.4 fL (7.6-11.3); RBC Red Blood Cell Count 2.54 M/uL (4.33-5.43)
[2018-10-26] MEDS: PANTOPRAZOLE 40MG TABLET PO SCH (05:50)
[2018-10-26 06:01] LABS: ALT/SGPT 10 U/L (12-78); AST/SGOT 20 U/L (15-37); Albumin 2.2 g/dL (3.4-5.0); Alkaline Phosphatase 69 U/L (45-117); BUN Blood Urea Nitrogen 10 mg/dL (7-18); Bicarbonate 25 mmol/L (21-32); Bilirubin Total 0.5 mg/dL (0.2-1.0); Glucose Level 120 mg/dL (74-106); Potassium 3.8 mmol/L (3.5-5.1); Protein, Total 5.4 g/dL (6.4-8.2); Sodium Level 139 mmol/L (136-145)
[2018-10-26] MEDS: DOCUSATE NA 100 MG CAP PO PRN (08:16)
[2018-10-26] MEDS: NA CHLORIDE 0.9% 1,000 ML IV SCH ×2 (11:40→21:54)
--- NOTE | 2018-10-26 12:57 | P.PN ---
Subjective Date of Service: 10/26/18 Chief Complaint: Fall Subjective: No new changes, No C/O voiced, Improving, Working w/ PT Patient seen and examined at bedside. Family at bedside. Chart reviewed and case discussed with nursing staff. Reports improved pain. Review of Systems As noted Physical Examination - Vital Signs Temperature: 99.2 F Blood Pressure: 125/58 Pulse: 82 Respirations: 20 Pulse Ox (%): 93 - Physical Exam General: Alert, In no apparent distress, Oriented x3 HEENT: Atraumatic, PERRLA, EOMI Neck: Supple, JVD not distended Respiratory: Clear to auscultation bilaterally, Normal air movement Cardiovascular: Regular rate/rhythm, Normal S1 S2 Gastrointestinal: Normal bowel sounds, No tenderness Musculoskeletal: Other (Pain with movement of hip/leg) Integumentary: No rashes Neurological: Normal speech, Normal tone, Normal affect Lymphatics: No axilla or inguinal lymphadenopathy Assessment And Plan - Plan THis is a 87 yr old male with: s/p mechanical fall Right displaced intertrocanteric fracture of the femur Dr. Rinaldi consulted. Recommendations appreciated. Status post combination located close reduction with jonathan fixation, postop day 2. Pain controlled with medications Colace added Working with physical therapy Will start discharge planning, social work involved. Essential Hypertension Restarted home medication Stable at this time. Will continue to monitor DVT prophylaxis: Lovenox GI prophylaxis: Protonix Diet: Regular diet. Disposition: Pending symptomatic improvement, working with physical therapy. He will need rehab/physical therapy post surgery. Social work involved for discharge planning Physician Review: Patient Assessed, Agree with Above Assessment and Plan Time Spent Managing PTS Care (In Minutes): 35
[2018-10-26 16:59] LABS: Urine Appearance CLOUDY; Urine Bilirubin NEGATIVE (NEG); Urine Blood 3+ (NEG); Urine Color DK YELLOW; Urine Glucose NEGATIVE (NEG); Urine Protein 1+ (NEG); Urine Specific Gravity 1.015 (1.005-1.030)
[2018-10-26] MEDS ORDERED: ENOXAPARIN 40 MG/0.4 ML SQ SCH (17:00)
[2018-10-26 17:48] LABS: Urine Microscopic Reflex ORDER UMIC
[2018-10-26 17:49] LABS: Urine RBC LOADED /HPF (NONE SEEN)
[2018-10-26 17:50] LABS: Urine Bacteria 20-50 /HPF (NONE SEEN); Urine Culture Reflex Order REFLEXED
[2018-10-26] MEDS ORDERED: POTASSIUM CL SA 10 MEQ TAB PO ONE (21:00)
[2018-10-26] MEDS: ENOXAPARIN 40 MG/0.4 ML SQ SCH (21:53)
[2018-10-26] MEDS: LISINOPRIL 10 MG TAB PO SCH (21:53)
--- NOTE | 2018-10-27 03:43 | PN ---
Date of Progress Note: 10/26/2018 Patient was seen today. He is alert and communicative. Pain is well managed. His heel is elevated off the bed. His heels are nontender. EHL, tibialis anterior, plantar flexion are strong. Dressing is clean, dry, and intact. Hemoglobin is slightly decreased, but doing fairly well. At this time, I discussed with the nurse, his hospitalist, would consider Lovenox anticoagulant, and I will give th em a call. Otherwise, he is in SCDs. SE/MODL Voice ID: [id number] Report ID: [id number]
[2018-10-27] MEDS: MORPHINE 2 MG/ML SYR IV PRN ×3 (04:16→20:45)
[2018-10-27] MEDS: PANTOPRAZOLE 40MG TABLET PO SCH (05:18)
[2018-10-27] MEDS ORDERED: POTASSIUM 25 MEQ EFFERV TAB PO ONE (05:55)
[2018-10-27] MEDS: NA CHLORIDE 0.9% 1,000 ML IV SCH (10:13)
--- NOTE | 2018-10-27 11:36 | P.PN ---
Subjective Date of Service: 10/27/18 Chief Complaint: Fall Subjective: No new changes, No C/O voiced, Improving Patient seen and examined at bedside. Family at bedside. Chart reviewed and case discussed with nursing staff. Reports improved pain. Review of Systems As noted Physical Examination - Vital Signs Temperature: 97.9 F Blood Pressure: 154/72 Pulse: 80 Respirations: 19 Pulse Ox (%): 98 - Physical Exam General: Alert, In no apparent distress, Oriented x3 HEENT: Atraumatic, PERRLA, EOMI Neck: Supple, JVD not distended Respiratory: Clear to auscultation bilaterally, Normal air movement Cardiovascular: Regular rate/rhythm, Normal S1 S2 Gastrointestinal: Normal bowel sounds, No tenderness Integumentary: No rashes Neurological: Normal speech, Normal tone, Normal affect Assessment And Plan - Plan THis is a 87 yr old male with: s/p mechanical fall Right displaced intertrocanteric fracture of the femur Dr. Rinaldi consulted. Recommendations appreciated. Status post combination open and close reduction with jonathan fixation, postop day 3. Pain controlled with medications Colace added Working with physical therapy Discharge planning started, social work involved. Essential Hypertension Restarted home medication Stable at this time. Will continue to monitor DVT prophylaxis: Lovenox GI prophylaxis: Protonix Diet: Regular diet. Disposition: Pending symptomatic improvement, working with physical therapy. He will need rehab/physical therapy post surgery. Social work involved for discharge planning Physician Review: Patient Assessed, Agree with Above Assessment and Plan Time Spent Managing PTS Care (In Minutes): 35
[2018-10-27 12:06] LABS: Absolute Lymphocytes (CBC) 1.5 K/uL (0.7-4.9); Absolute Monocytes 1.2 K/uL (0.1-1.3); Absolute Neutrophil 6.8 K/uL (1.8-8.0); Basophils % 0.6 % (0-1.3); Eosinophils % 1.8 % (0-4.4); Hematocrit 27.1 % (39.6-49.0); Lymphocytes % 15.2 % (15.3-44.8); MCH 33.7 pg (27.0-35.0); MCV 97.3 fL (80-100); MPV 8.8 fL (7.6-11.3); Monocytes % 12.6 % (3.3-12.3); RBC Red Blood Cell Count 2.78 M/uL (4.33-5.43)
[2018-10-27 12:26] LABS: BUN Blood Urea Nitrogen 13 mg/dL (7-18); Bicarbonate 24 mmol/L (21-32); Glucose Level 103 mg/dL (74-106); Sodium Level 139 mmol/L (136-145)
[2018-10-27] MEDS: LISINOPRIL 10 MG TAB PO SCH (20:45)
[2018-10-27] MEDS: ENOXAPARIN 40 MG/0.4 ML SQ SCH (20:46)
[2018-10-28] MEDS: NA CHLORIDE 0.9% 1,000 ML IV SCH ×3 (02:39→20:36)
[2018-10-28] MEDS: MORPHINE 2 MG/ML SYR IV PRN ×3 (04:59→20:35)
[2018-10-28] MEDS: PANTOPRAZOLE 40MG TABLET PO SCH (05:00)
--- NOTE | 2018-10-28 12:43 | P.PN ---
Subjective Date of Service: 10/28/18 Chief Complaint: Fall Subjective: No new changes, No C/O voiced, Improving, Working w/ PT Patient seen and examined at bedside. Family at bedside. Chart reviewed and case discussed with nursing staff. Reports improved pain. Review of Systems As noted Physical Examination - Vital Signs Temperature: 98.4 F Blood Pressure: 160/72 Pulse: 65 Respirations: 16 Pulse Ox (%): 97 - Physical Exam General: Alert, In no apparent distress, Oriented x3 HEENT: Atraumatic, PERRLA, EOMI Neck: Supple, JVD not distended Respiratory: Clear to auscultation bilaterally, Normal air movement Cardiovascular: Regular rate/rhythm, Normal S1 S2 Gastrointestinal: Normal bowel sounds, No tenderness Musculoskeletal: Tenderness Integumentary: No rashes Neurological: Normal speech, Normal tone, Normal affect Assessment And Plan - Plan THis is a 87 yr old male with: s/p mechanical fall Right displaced intertrocanteric fracture of the femur Dr. Rinaldi consulted. Recommendations appreciated. Status post combination open and close reduction with jonathan fixation, postop day 4. Pain controlled with medications Colace added Working with physical therapy Discharge planning started, social work involved. Essential Hypertension Restarted home medication Stable at this time. Will continue to monitor DVT prophylaxis: Lovenox GI prophylaxis: Protonix Diet: Regular diet. Disposition: Pending symptomatic improvement, working with physical therapy. He will need rehab/physical therapy post surgery. Social work involved for discharge planning. Physician Review: Patient Assessed, Agree with Above Assessment and Plan Time Spent Managing PTS Care (In Minutes): 35
[2018-10-28] MEDS: LISINOPRIL 10 MG TAB PO SCH (20:36)
[2018-10-28] MEDS: ENOXAPARIN 40 MG/0.4 ML SQ SCH (20:36)
[2018-10-29] MEDS: PANTOPRAZOLE 40MG TABLET PO SCH (05:32)
[2018-10-29 05:57] LABS: Absolute Lymphocytes (CBC) 1.3 K/uL (0.7-4.9); Absolute Monocytes 0.9 K/uL (0.1-1.3); Absolute Neutrophil 4.1 K/uL (1.8-8.0); Basophils % 0.7 % (0-1.3); Hematocrit 26.3 % (39.6-49.0); Lymphocytes % 20.3 % (15.3-44.8); MCV 95.7 fL (80-100); MPV 8.3 fL (7.6-11.3); Monocytes % 13.9 % (3.3-12.3); RBC Red Blood Cell Count 2.75 M/uL (4.33-5.43)
[2018-10-29] MEDS: NA CHLORIDE 0.9% 1,000 ML IV SCH (06:08)
[2018-10-29] MEDS: MORPHINE 2 MG/ML SYR IV PRN ×2 (06:08→10:39)
[2018-10-29 06:13] LABS: ALT/SGPT 25 U/L (12-78); AST/SGOT 27 U/L (15-37); Albumin 2.2 g/dL (3.4-5.0); Alkaline Phosphatase 88 U/L (45-117); BUN Blood Urea Nitrogen 9 mg/dL (7-18); Bicarbonate 27 mmol/L (21-32); Bilirubin Total 0.7 mg/dL (0.2-1.0); Glucose Level 108 mg/dL (74-106); Potassium 3.7 mmol/L (3.5-5.1); Protein, Total 5.8 g/dL (6.4-8.2); Sodium Level 142 mmol/L (136-145)
[2018-10-29] MEDS ORDERED: KCL 20 MEQ/100 mL IVPB 20 MEQ/100 ML BAG IV SCH (08:00)
--- NOTE | 2018-10-29 19:57 | PN ---
Date of Progress Note: 10/29/2018 Subjective: The patient seen and examined. Chart reviewed and case discussed with RN. The patient is doing well. He does state he has some pain with movement when he works with physical therapist, olivia schmid eating and drinking well. No other complaints. Awaiting transfer to rehab. Code Status: Full. Medications: List reviewed. Physical Examination: Vital Signs: Temperature 98.4, heart rate 77, blood pressure 119/77, respirations 18, O2 97% on room air. General: Awake, alert, oriented x3, not in any acute distress. Elderly male. CV: S1 and S2. No murmurs. Peripheral pulses present. Regular rate and rhythm. Respiratory: Moving air well bilaterally. No wheezes. Gastrointestinal: Abdomen is soft, nontender, nondistended. Positive bowel sounds. Extremities: No clubbing, cyanosis, edema. Musculoskeletal: Right lower extremity incision site clean, dry, intact. Pain around the incision s ite. NEURO: Nonfocal. Cranial nerves 2 through 12 intact grossly. No focal neurologic deficits. Speech is normal. Laboratory Data: Sodium 142, potassium 3.7, chloride 110, CO2 27, BUN 9, creatinine 0.7, glucose 108 , calcium 8.1. WBC 6.6, H and H 9.1 and 26.3, platelets 258, neutrophils 61%. Urine culture shows n o growth. Assessment: An 87-year-old male with: 1.Status post mechanical fall. 2.Right displaced intertrochanteric fracture of the femur, closed in initial encounter, status post open reduction and internal fixation, postoperative day #5. Appreciate Dr. Rinaldi's input. Michelle nue pain medications. Continue physical therapy and occupational therapy. 3.Essential hypertension, stable. Continue to monitor. 4.Gastrointestinal and deep vein thrombosis prophylaxis with Lovenox and Protonix. Plan: 1.Discharge to rehab once accepted. 2.Normocytic-normochromic anemia, likely postoperative. We will continue to monitor H and H, transf use as needed, likely secondary to postoperative anemia. 3.Discharge was accepted to rehab. SA/MODL Voice ID: [id number] Report ID: [id number]
[2018-10-29] MEDS: ENOXAPARIN 40 MG/0.4 ML SQ SCH (20:36)
[2018-10-29] MEDS: LISINOPRIL 10 MG TAB PO SCH (20:37)
[2018-10-30] MEDS: ACETAMINOPHEN 500 MG TAB PO PRN ×3 (03:27→20:07)
[2018-10-30] MEDS: PANTOPRAZOLE 40MG TABLET PO SCH (05:48)
[2018-10-30 06:10] LABS: Absolute Lymphocytes (CBC) 1.2 K/uL (0.7-4.9); Absolute Neutrophil 6.3 K/uL (1.8-8.0); Basophils % 0.8 % (0-1.3); Eosinophils % 2.2 % (0-4.4); Hematocrit 24.2 % (39.6-49.0); Lymphocytes % 13.9 % (15.3-44.8); MCH 33.2 pg (27.0-35.0); MCV 96.4 fL (80-100); MPV 7.9 fL (7.6-11.3); Monocytes % 11.6 % (3.3-12.3); RBC Red Blood Cell Count 2.51 M/uL (4.33-5.43)
[2018-10-30 06:28] LABS: BUN Blood Urea Nitrogen 11 mg/dL (7-18); Bicarbonate 26 mmol/L (21-32); Glucose Level 109 mg/dL (74-106); Magnesium 2.2 mg/dL (1.8-2.4); Phosphorus 2.9 mg/dL (2.5-4.9); Potassium 3.8 mmol/L (3.5-5.1); Sodium Level 139 mmol/L (136-145)
[2018-10-30] MEDS ORDERED: POTASSIUM CL SA 10 MEQ TAB PO ONE (06:30)
--- NOTE | 2018-10-30 13:28 | PN ---
Date of Progress Note: 10/30/2018 Subjective: Patient seen and examined. Chart reviewed and case discussed with RN. The patient is not really working too well with physical therapy. at the bedside. Review of Systems: Negative except as above. Medications: List reviewed. Physical Examination: Vital Signs: Temperature 97.4, heart rate 76, blood pressure 121/60, respirations 18, O2 96% on room air. General: Awake, alert, oriented x3, elderly male, not in any acute distress. CV: S1, S2. Regular rate and rhythm. Respiratory: Clear to auscultation bilaterally. No wheezing or stridor. Gastrointestinal: Abdomen is soft, nontender, nondistended. Positive bowel sounds. Extremities: No clubbing, cyanosis, or edema. Musculoskeletal: Right hip incision site is clean, dry, intact. Neurologic: Nonfocal. Laboratory Data: Sodium 139, potassium 3.8, chloride 108, CO2 26, BUN 11, creatinine 0.7, glucose 109, calcium 8.2, phosphorus 2.9, magnesium 2.2, albumin 2.2. WBC 8.9, hemoglobin and hematocrit 8.3 and 24.2, platelets 248, neutrophils 71%. Assessment: An 87-year-old male with: 1. Status post mechanical fall. 2. Right displaced intertrochanteric fracture of the femur, closed initial encounter, status post open reduction and internal fixation, postoperative day # 6. The patient not working too well with physical therapy. Doubt he will be able to go to rehab. We will try to refer patient to long term facility. Continue pain control. Dr. Rinaldi on board. 3. Essential hypertension, stable. 4. Gross hematuria. We will check UA, likely secondary to Lovenox. The patient does have some symptoms of enlarged prostate. 5. Normocytic normochromic anemia, likely postoperative. We will monitor H and H and transfuse as needed. 6. Gastrointestinal and deep vein thrombosis prophylaxis with Protonix and Lovenox. 7. Severe Protein calorie malnutrition: supplements. Plan: Refer to SNF. Discharge was accepted. Continue PT, OT. ADDENDUM: UA is positive. Urine culture from 10/25/18 shows no growth. Will add IV Rocephin and repeat cultures. SA/MODL Voice ID: [id number] Report ID: [id number] MTDD
[2018-10-30 14:45] LABS: Urine Appearance CLOUDY; Urine Bilirubin NEGATIVE (NEG); Urine Blood 3+ (NEG); Urine Color DK YELLOW; Urine Glucose NEGATIVE (NEG); Urine Protein TRACE (NEG); Urine pH 6.5 (5.0-7.0)
[2018-10-30 14:59] LABS: Urine Bacteria 20-50 /HPF (NONE SEEN); Urine Culture Reflex Order REFLEXED; Urine Mucus 2+ /HPF (NONE SEEN)
[2018-10-30] MEDS ORDERED: CEFAZOLIN/SWI 1gm 1 GM/10 ML SYR IVP SCH (16:00)
[2018-10-30] MEDS ORDERED: CEFAZOLIN 1GM (PREMIX IV) 1 GM/50 ML BAG IV SCH (17:00)
[2018-10-30] MEDS: LISINOPRIL 10 MG TAB PO SCH (21:00)
[2018-10-30] MEDS: ENOXAPARIN 40 MG/0.4 ML SQ SCH (22:42)
[2018-10-31] MEDS: SODIUM CHL 0.9% IRR SOLN 2000 ML IRR PRN ×4 (00:19→22:20)
[2018-10-31] MEDS: TRAMADOL HCL 50 MG TAB PO PRN ×2 (00:25→09:42)
[2018-10-31 05:57] LABS: BUN Blood Urea Nitrogen 11 mg/dL (7-18); Bicarbonate 27 mmol/L (21-32); Glucose Level 116 mg/dL (74-106); Sodium Level 139 mmol/L (136-145)
[2018-10-31 05:59] LABS: Absolute Lymphocytes (CBC) 0.9 K/uL (0.7-4.9); Absolute Neutrophil 11.4 K/uL (1.8-8.0); Basophils % 0.5 % (0-1.3); Eosinophils % 1.1 % (0-4.4); Hematocrit 25.4 % (39.6-49.0); Lymphocytes % 6.8 % (15.3-44.8); MCH 32.9 pg (27.0-35.0); Monocytes % 7.5 % (3.3-12.3); RBC Red Blood Cell Count 2.65 M/uL (4.33-5.43)
[2018-10-31] MEDS: ACETAMINOPHEN 500 MG TAB PO PRN (06:18)
[2018-10-31] MEDS: PANTOPRAZOLE 40MG TABLET PO SCH (06:19)
--- NOTE | 2018-10-31 13:23 | CON ---
Subjective: This is a pleasant 87-year-old gentleman, who fell somehow according to the chart. He fell at home, stepped on uneven floor, and fell on his right side and developed a right intertrochanteric fracture of the femur. He was taken to the operative room on 10/24/[address] Rinaldi where he had right hip closed reduction with intramedullary nailing. He was currently on the floor receiving Lovenox injections when he was noticed to start having gross hematuria, was pretty red, so, nurses called me yesterday. They went ahead and held the Lovenox prior to calling me. I went ahead and told them to put a 3-way catheter in with lots of lubrication and begin normal saline CBI. Today, the urine was crystal clear and minimal CBI. We will leave it in for a few more days and then can remove. He denies any significant lower urinary tract symptomatology. Denies straining, frequency, urgency past hematuria, kidney stones, even denies seeing a urologist before. He does have some nocturia x3. Allergies: NO KNOWN DRUG ALLERGIES. Home Medications: Tylenol, ketoconazole, lisinopril, lutein, multivitamin, [place]-3 fatty acids, pantoprazole. Past Medical And Surgical History: Right intertrochanteric femur reduction and nailing, arthritis, abdominal exploratory surgery, bilateral cataract surgery, tonsillectomy surgery, broken wrist surgery, renal fistula surgery, eyelid surgery. Social History: The patient never smoked. No alcohol use. No drug use. No caffeine use. Resides at home. Review of Systems: Unremarkable. HEENT: Unremarkable. Respiratory: Unremarkable. Cardiovascular: No complaints. Gastrointestinal: Unremarkable. Genitourinary: As mentioned above. Musculoskeletal: As mentioned above. Skin: Unremarkable. Neurologic: Unremarkable. Lymphatics: Unremarkable. Physical Examination: Vital Signs: Today, 98.2 temperature, pulse 68, respirations 17, blood pressure 120/59, 95% saturations on room air. General: He is alert and oriented x3, in no distress. HEENT: Atraumatic, normocephalic. Neck: Clear. Respiratory: Respirations clear bilaterally. Cardiovascular: S1 and S2. Gastrointestinal: Soft and nontender. : No tenderness. A 22-Paraguayan Puentes 3-way, hematuria draining clear urine with CBI and minimal. Skin: Has alise in the back of head from a laceration. Neurologic: Normal speech and tone. Lymphatics: No adenopathy. Laboratory Studies: Today's labs show white count slightly elevated at 30.3, hemoglobin and hematocrit 8.7 and 25, platelet count 289. Coags normal. Chemistry: Sodium 139, potassium 4.0, chloride 106, carbon dioxide 27, BUN 11, creatinine 0.8. GFR greater than 90, glucose 116, calcium is 8.4. Urine study showed dark cloudy urine, 3+ blood, 4+ urobilinogen, leukocyte esterase 3+, RBCs 5 to 10, WBCs 10 to 20, __less than 5, bacteria 20 to 50. Urine culture is pending. Assessment And Plan: Status post gross hematuria, most likely from the Lovenox. The patient with slight history of minimal BPH. Also, go ahead and start him on Flomax now so that when the Puentes catheter is removed, he can void without any straining. Does not necessarily need to continue the Flomax at home since he was doing well before, the Puentes catheter can also be removed in a few days also if his urine remains clear. ROSETTA/WILLIS Voice ID: [id number] Report ID: [id number] VONDA
[2018-10-31] MEDS: CEFTRIAXONE/SWI 1gm 1 GM/10 ML SYR IV SCH (13:55)
--- NOTE | 2018-10-31 19:05 | PN ---
Date of Progress Note: 10/31/2018 Subjective: Patient seen and examined. Chart reviewed and case discussed with RN. The patient is n ot really working too well with physical therapy. Complains of pain with movement, otherwise well co ntrolled. The patient was started on bladder irrigation last night due to hematuria. Urine clearing up. Code Status: Full. Medications: List reviewed. Physical Examination: Vital Signs: Temperature 98, heart rate 81, blood pressure 128/61, respirations 18, O2 94% on room a ir. General: Awake, alert, and oriented x3. Elderly male, in some mild distress due to pain. CV: S1 and S2. Peripheral pulses present. Respiratory: Moving air well bilaterally. No wheezing or stridor. Gastrointestinal: Abdomen is soft, nontender, nondistended. Positive bowel sounds. Extremities: No clubbing, cyanosis, or edema. Musculoskeletal: Right hip incision site clean, dry, and intact. Mild tenderness to palpation at th e incision site and decreased range of motion due to pain. Neurologic: Nonfocal. Laboratory Data: Sodium 139, potassium 4, chloride 106, CO2 27, BUN 11, creatinine 0.8, glucose 116, calcium 8.4. WBC 13.5, hemoglobin and hematocrit 8.7 and 85.4, platelets 289, neutrophils 84%. Uri ne culture growing 2+ gram-negative rods. Assessment: An 87-year-old male with: 1.Status post mechanical fall. 2.Displaced intertrochanteric fracture of the femur, closed, initial encounter, status post open red uction and internal fixation, postoperative day #7. Continue PT, has been referred to [facility] facility for rehab. Continue Lovenox for deep venous thrombosis prophylaxis. 3.Gross hematuria. Appreciate Dr. García's input, clearing up with bladder irrigation. We will not need to hold Lovenox. The patient does have some enlarged prostate type symptoms, likely benign pros tatic hyperplasia. Has been started on Flomax. We will continue with Puentes catheter for now. 4.Essential hypertension, stable. 5.Normocytic normochromic anemia. The patient has some drop in his hemoglobin, likely due to post o perative changes. We will continue to monitor and transfuse as needed. 6.Severe protein-calorie malnutrition. 7.Gastrointestinal and deep vein thrombosis prophylaxis with Protonix and Lovenox. 8.Acute cystitis with gross hematuria secondary to gram-negative rods. We will continue Rocephin an d follow up on ID and sensitivity. Plan: The patient is referred to longterm facility. We will discharge once accepted. AMANDA Voice ID: [id number] Report ID: [id number]
[2018-10-31] MEDS: LISINOPRIL 10 MG TAB PO SCH (22:14)
[2018-10-31] MEDS: TAMSULOSIN 0.4 MG SR CAP PO SCH (22:14)
[2018-10-31] MEDS: ENOXAPARIN 40 MG/0.4 ML SQ SCH (22:15)
[2018-11-01] MEDS: PANTOPRAZOLE 40MG TABLET PO SCH (06:10)
[2018-11-01 07:36] LABS: Absolute Lymphocytes (CBC) 1.5 K/uL (0.7-4.9); Absolute Monocytes 1.5 K/uL (0.1-1.3); Absolute Neutrophil 9.1 K/uL (1.8-8.0); Basophils % 0.8 % (0-1.3); Eosinophils % 1.7 % (0-4.4); Hematocrit 25.1 % (39.6-49.0); Lymphocytes % 12.1 % (15.3-44.8); MCH 32.8 pg (27.0-35.0); MCV 96.5 fL (80-100); MPV 7.7 fL (7.6-11.3); Monocytes % 12.3 % (3.3-12.3)
[2018-11-01 07:55] LABS: BUN Blood Urea Nitrogen 11 mg/dL (7-18); Bicarbonate 26 mmol/L (21-32); Glucose Level 104 mg/dL (74-106); Sodium Level 137 mmol/L (136-145)
[2018-11-01] MEDS: CEFTRIAXONE/SWI 1gm 1 GM/10 ML SYR IV SCH (09:01)
[2018-11-01] MEDS: TRAMADOL HCL 50 MG TAB PO PRN (09:19)
--- NOTE | 2018-11-01 12:48 | EKG ---
Test Date: 2018-11-01 Test Time: 10:18:34 Tripe Finisher: STEVE MEASUREMENT RESULTS: Intervals: Rate: 71 DE: 160 QRSD: 108 QT: 416 QTc: 452 [place]: P: 63 DE: 160 QRS: -2 T: 30 INTERPRETIVE STATEMENTS: Normal sinus rhythm with sinus arrhythmia Normal ECG Compared to ECG 10/23/2018 10:07:26 Sinus bradycardia no longer present Electronically Signed On 11-01-18 12:47:45 GANG INVESTIGATOR by Brent Bender
--- NOTE | 2018-11-01 13:36 | PN ---
Date of Progress Note: 11/01/2018 Subjective: The patient seen and examined. Chart reviewed and case discussed with RN. The patient denies any history of atrial fibrillation. Rhythm strips do not show any atrial fibrillation, fabiola lynn, was seen to be in atrial fibrillation on the monitor. Likely has paroxysmal atrial fibrillation t hat has not been diagnosed previously. Medications: List reviewed. Physical Examination: Vital Signs: Temperature 98.1, heart rate 66, blood pressure 116/67, respirations 18, O2 95% on room air. General: Awake, alert, oriented x3, not in any acute distress. Elderly male. CV: S1 and S2. Regular rate and rhythm. Peripheral pulses present. Respiratory: Moving air well bilaterally. No wheezing or stridor. No use of accessory muscles. Gastrointestinal: Abdomen is soft, nontender, nondistended. Positive bowel sounds. Extremities: No clubbing, cyanosis, or edema. Neurologic: Nonfocal. Laboratory Data: Sodium 137, potassium 4, chloride 104, CO2 26, BUN 11, creatinine 0.8, glucose 104, calcium 8.6. WBC 12.5, H and H 8.5 and 25.1, platelets 315, neutrophils 73%. Urine culture growing 2+ gram-negative rods. Assessment And Plan: An 87-year-old male with: 1.Status post mechanical fall. 2.Displaced intertrochanteric fracture of the femur, closed initial encounter, status post open redu ction and internal fixation, postoperative #8. The patient did walk 15-12 feet with physical therapi st. Does report some pain with activity. We will continue Lovenox for deep venous thrombosis prophy laxis. 3.Acute cystitis with gross hematuria. Cultures growing gram-negative rods. ID and sensitivity pen tracie. The patient did receive bladder irrigation and hematuria has resolved. Dr. García is on the ca se. We will continue Flomax and continue Puentes catheter for now. Continue IV antibiotics for cystit is. 4.Essential hypertension, stable. 5.Paroxysmal atrial fibrillation. The patient likely has undiagnosed atrial fibrillation, currently in sinus rhythm. The patient's CHADS score is 4. He will require anticoagulation termination clerk. 6.Normocytic normochromic anemia, likely related to postoperative changes. We will continue to alison tor and transfuse as needed. 7.Severe protein-calorie malnutrition. Albumin is 2.2. 8.Gastrointestinal and deep venous thrombosis prophylaxis with Protonix and Lovenox. We will switch over to oral anticoagulation. Plan: Discharge to shelter facility once accepted. /WILLIS Voice ID: [id number] Report ID: [id number]
[2018-11-01] MEDS: ACETAMINOPHEN 500 MG TAB PO PRN (16:44)
[2018-11-01] MEDS: SODIUM CHL 0.9% IRR SOLN 2000 ML IRR PRN (18:22)
[2018-11-01] MEDS: ENOXAPARIN 40 MG/0.4 ML SQ SCH (21:21)
[2018-11-01] MEDS: TAMSULOSIN 0.4 MG SR CAP PO SCH (21:21)
[2018-11-01] MEDS: LISINOPRIL 10 MG TAB PO SCH (21:22)
[2018-11-02] MEDS: SODIUM CHL 0.9% IRR SOLN 2000 ML IRR PRN ×2 (02:02→11:39)
[2018-11-02] MEDS: PANTOPRAZOLE 40MG TABLET PO SCH (05:05)
[2018-11-02 05:44] LABS: Absolute Lymphocytes (CBC) 1.9 K/uL (0.7-4.9); Absolute Monocytes 1.1 K/uL (0.1-1.3); Absolute Neutrophil 5.3 K/uL (1.8-8.0); Basophils % 1.2 % (0-1.3); Eosinophils % 3.6 % (0-4.4); Hematocrit 26.6 % (39.6-49.0); Lymphocytes % 22.1 % (15.3-44.8); MCH 33.5 pg (27.0-35.0); MCV 97.1 fL (80-100); MPV 8.3 fL (7.6-11.3); Monocytes % 12.4 % (3.3-12.3); RBC Red Blood Cell Count 2.74 M/uL (4.33-5.43)
[2018-11-02 05:58] LABS: BUN Blood Urea Nitrogen 11 mg/dL (7-18); Bicarbonate 27 mmol/L (21-32); Glucose Level 106 mg/dL (74-106); Magnesium 2.4 mg/dL (1.8-2.4); Phosphorus 3.2 mg/dL (2.5-4.9); Sodium Level 140 mmol/L (136-145)
[2018-11-02] MEDS: CEFTRIAXONE/SWI 1gm 1 GM/10 ML SYR IV SCH (09:19)
[2018-11-02] MEDS: TRAMADOL HCL 50 MG TAB PO PRN ×2 (11:37→19:48)
--- NOTE | 2018-11-02 15:34 | PN ---
Date of Progress Note: 11/02/2018 Subjective: The patient seen and examined. Chart reviewed and case discussed with RN. The patient doing well. No acute events overnight. Working with PT. Medications: List reviewed. Physical Examination: Vital Signs: Temperature 97.4, heart rate 69, blood pressure 128/68, respirations 18, O2 96% on room air. General: Awake, alert, oriented x3 without any acute distress. Elderly male. CV: S1 and S2. Regular rate and rhythm. Peripheral pulses present. Respiratory: Moving air well bilaterally. No wheezing. Gastrointestinal: Abdomen is soft, nontender, nondistended. Positive bowel sounds. Extremities: No clubbing, cyanosis, or edema. Musculoskeletal: Right hip incision site clean, dry, intact. Neurologic: Nonfocal. Laboratory Data: Sodium 140, potassium 4, chloride 106, CO2 27, BUN 11, creatinine 0.8, glucose 106, calcium 8.6, phosphorus 3.2, magnesium 2.4. WBC 8.6, H and H 9.2 and 26.6, platelets 365. Assessment: An 87-year-old male with: 1.Status post mechanical fall. 2.Displaced intertrochanteric fracture of the femur, closed encounter, status post open reduction an d internal fixation, postoperative day #9. The patient working with physical therapist with minimal activity. Continue Lovenox for deep venous thrombosis prophylaxis. 3.Acute cystitis with gross hematuria. Cultures growing Enterobacter cloacae. Sensitive to ceftria xone. We will continue with IV antibiotics. The patient's gross hematuria has resolved. We will di scuss with Urology regarding discontinuing Puentes catheter. 4.Essential hypertension, stable. 5.Acute blood loss anemia likely secondary to postoperative changes. Monitor H and H. We will greer sfuse as needed. 6.Paroxysmal atrial fibrillation, currently in sinus rhythm. We will discuss with Cardiology regard ing long-term anticoagulation. The patient does have gross hematuria, but is resolving. 7.Severe protein-calorie malnutrition. Albumin 2.2. Continue with supplements. 8.Gastrointestinal and deep venous thrombosis prophylaxis with Protonix and Lovenox. Plan: [facility] facility once [facility]. SA/MODL Voice ID: [id number] Report ID: [id number]
[2018-11-02] MEDS: ENOXAPARIN 40 MG/0.4 ML SQ SCH (20:44)
[2018-11-02] MEDS: TAMSULOSIN 0.4 MG SR CAP PO SCH (20:45)
[2018-11-03] MEDS: LISINOPRIL 10 MG TAB PO SCH ×2 (00:35→21:11)
[2018-11-03] MEDS: SODIUM CHL 0.9% IRR SOLN 2000 ML IRR PRN (02:40)
[2018-11-03] MEDS: PANTOPRAZOLE 40MG TABLET PO SCH (06:32)
[2018-11-03 07:11] LABS: BUN Blood Urea Nitrogen 12 mg/dL (7-18); Bicarbonate 27 mmol/L (21-32); Glucose Level 99 mg/dL (74-106); Potassium 4.2 mmol/L (3.5-5.1); Sodium Level 136 mmol/L (136-145)
[2018-11-03] MEDS: CEFTRIAXONE/SWI 1gm 1 GM/10 ML SYR IV SCH (09:18)
[2018-11-03] MEDS: TRAMADOL HCL 50 MG TAB PO PRN (11:01)
--- NOTE | 2018-11-03 12:14 | CON ---
Date of Consultation: 11/03/2018 An 87-year-old man. Reason For Consult: Atrial fibrillation. History Of Present Illness: Mr. Clark has been in our hospital since October 23, this is November 03. Mr. Clark had a hip fracture. He has undergone surgical repair. Dr. Rinaldi did it. He has been in the hospital ever since. It was the right intertrochanteric femoral neck that was fractu red and the repair was successful in every way, but he is having lots of pain and discomfort, is not really ambulatory yet. He is still in the hospital. He has been on telemetry for 11 days. There seals ve been 2 episodes of narrow complex tachycardia going about 130 to 160 beats per minute. Neither of them lasted more than 10 seconds and he has been in sinus rhythm all the other time. The patient seals s no history of atrial fibrillation, did not seem to feel it. Outpatient Medications: Multivitamin, lutein, Tylenol, Protonix, lisinopril, and ketoconazole cream. Does not have a history of CAD, diabetes, hypertension, dyslipidemia. Allergies: HE HAS NO KNOWN DRUG ALLERGIES. Physical Examination: General: He is alert, oriented, pleasant. He is not in distress. Lungs: Clear. Heart: Within normal limits. Extremities: Trace edema. Distal pulses palpable. Laboratory Data: EKG is normal. His atrial fibrillation is all on telemetry strips and could be of course automatic atrial tach or AV node reentrant SVT as well. We do not have a long enough spell of it to really be sure it is atrial fib. Impression: My impression is the patient should be on beta blockers, it is likely to reduce the numb er of spells he has and when he has them it will be slower. He is fully anticoagulated as far as DVT prophylaxis with Lovenox. I think we might be lassiter to switch him to a full dose of Xarelto. The ca veat with that would be his hemoglobin is low and has remained low, so it might be better just to sta y with DVT prophylaxis doses of enoxaparin. He has not required a transfusion, bur his most recent h emoglobin is 9.2. He has normal BUN, creatinine, blood sugars, blood pressures, heart rate. I will just recommend that we add a beta-navjot to the regimen, a low dose of metoprolol that is what I feliberto l opt for. Thank you very much for your kind referral of Mr. Clark. I will follow with you. GAMAL/WILLIS Voice ID: [id number] Report ID: [id number]
--- NOTE | 2018-11-03 16:52 | PN ---
Date of Progress Note: 11/03/2018 Subjective: Patient seen and examined. Chart reviewed and case discussed with RN. at the beds yung. The patient was able to sit on the side of the bed and get up into the chair for 2 hours yester day, did not really walk with physical therapy due to pain. concerned about alise on the savana ent's scalp placed when he came into the ER after his fall. Medications: List reviewed. Physical Examination: Vital Signs: Temperature 97.2, heart rate 58, blood pressure 109/53, respirations 18, O2 96% on room air. General: Awake, alert, oriented x3. No acute distress. Elderly male. CV: S1, S2. Regular rate and rhythm. No murmurs. Respiratory: Moving air well bilaterally. No wheezing. Gastrointestinal: Abdomen is soft, nontender, nondistended. Positive bowel sounds. Extremities: No clubbing, cyanosis, or edema. Musculoskeletal: Right hip incision site clean, dry, and intact. Some pain with range of motion. Neuro: No focal. Laboratory Data: Sodium 136, potassium 4.2, chloride 105, CO2 27, BUN 12, creatinine 0.8, glucose 99 , calcium 8.5. WBC is pending. Urine culture growing Enterobacter cloacae. Assessment: An 87-year-old male with: 1.Status post mechanical fall. 2.Displaced intertrochanteric fracture of the femur, closed encounter, status post open reduction an d internal fixation, postop day #10. The patient was able to get out of bed onto the chair yesterday , not ambulating well with physical therapy due to pain with movement. We will continue Lovenox for deep venous thrombosis prophylaxis. 3.Acute cystitis with gross hematuria. Cultures showing Enterobacter cloacae sensitive to Rocephin. Continue IV antibiotics. Hematuria has resolved. We will discuss with Dr. García and discontinue F oley catheter. 4.Paroxysmal atrial fibrillation. Appreciate Dr. Bender' input. Beta blockers have been added due to his hematuria and low hemoglobin levels since surgery. We will hold off full dose anticoagulation for now. We will discuss further with Cardiology. 5.Essential hypertension, stable. Blood pressure on the normotensive to low side. 6.Acute blood loss anemia secondary to postoperative changes. Hemoglobin stable around 9. We will continue to monitor and transfuse as needed. 7.Severe protein-calorie malnutrition. Albumin 2.2. Continue supplements. 8.Gastrointestinal and deep venous thrombosis prophylaxis with Protonix and Lovenox. Plan: Discharge to nursing facility once accepted as per Physical Therapy and Rehab. /WILLIS Voice ID: [id number] Report ID: [id number]
[2018-11-03] MEDS ORDERED: METOPROLOL XL 25 MG TAB PO SCH (21:00)
[2018-11-03] MEDS: ENOXAPARIN 40 MG/0.4 ML SQ SCH (21:10)
[2018-11-03] MEDS: TAMSULOSIN 0.4 MG SR CAP PO SCH (21:10)
[2018-11-04] MEDS: PANTOPRAZOLE 40MG TABLET PO SCH (05:40)
[2018-11-04 06:30] LABS: Absolute Lymphocytes (CBC) 1.6 K/uL (0.7-4.9); Absolute Monocytes 0.9 K/uL (0.1-1.3); Eosinophils % 2.9 % (0-4.4); Hematocrit 25.7 % (39.6-49.0); Lymphocytes % 20.5 % (15.3-44.8); MCV 95.5 fL (80-100); MPV 8.2 fL (7.6-11.3); RBC Red Blood Cell Count 2.69 M/uL (4.33-5.43)
[2018-11-04 06:36] LABS: ALT/SGPT 29 U/L (12-78); AST/SGOT 24 U/L (15-37); Albumin 2.3 g/dL (3.4-5.0); Alkaline Phosphatase 132 U/L (45-117); BUN Blood Urea Nitrogen 12 mg/dL (7-18); Bicarbonate 27 mmol/L (21-32); Bilirubin Total 0.4 mg/dL (0.2-1.0); Glucose Level 101 mg/dL (74-106); Potassium 4.3 mmol/L (3.5-5.1); Protein, Total 5.9 g/dL (6.4-8.2); Sodium Level 139 mmol/L (136-145)
[2018-11-04] MEDS: CEFTRIAXONE/SWI 1gm 1 GM/10 ML SYR IV SCH (09:09)
[2018-11-04 17:19] VITALS: O2SAT 94
[2018-11-04 17:20] VITALS: BP 140/65; TEMP 97.4
--- NOTE | 2018-11-05 07:01 | DS ---
Date of Discharge: 11/04/2018 Consultants: 1.Dr. Rinaldi with Orthopedics. 2.Dr. Bender with Cardiology. Procedures: On 10/24/[address] Rinaldi right intramedullary fixation of the hip. Admitting Diagnoses: 1.Status post mechanical fall. 2.Right displaced intertrochanteric fracture of the femur, initial encounter. 3.Generalized osteoarthritis. Discharge Diagnoses: 1.Status post mechanical fall. 2.Displaced intertrochanteric fracture of the femur, closed encounter, status post open reduction an d internal fixation on Lovenox for deep venous thrombosis prophylaxis. 3.Acute cystitis with gross hematuria secondary to Enterobacter cloacae. 4.Paroxysmal atrial fibrillation. Hold off full-dose anticoagulation due to gross hematuria and fal l risk. We will continue Lovenox for now. 5.Essential hypertension. 6.Acute blood loss anemia secondary to postoperative changes. 7.Severe protein-calorie malnutrition, albumin 2.3. Hospital Course: The patient is an 87-year-old male, comes in with fall. It was mechanical fall. T he patient was found to have a right intertrochanteric fracture of the femur and also had a laceratio n on his head, which required alise as well as laceration on the elbow. The patient was seen by Dr Angela Rinaldi, who performed hip surgery as mentioned above. The patient did well postoperatively. Ho wever, due to pain, the patient was not able to work well with physical therapy, has not been very am bulatory, has been able to get off the bed and into the chair and take a few steps; however, has not been working well with physical therapy to go to rehab. The patient was then referred to [facility] facility. The patient did develop postoperative anemia; however, did not require any transfusio n. He was also found to have paroxysmal atrial fibrillation, which is likely been ongoing for past s everal years; however, was picked up on telemetry while the patient has been in the hospital. Cardio logy was consulted. The patient is not a candidate for full-dose anticoagulation for now due to delicia s hematuria and fall risk and will be continued on Lovenox. The [facility]. The patient will need outpatient followup with Cardiology and echocardiogram and discussion re garding full-dose anticoagulation for stroke prophylaxis. The patient also developed some UTI second brenton to enterobacter cloacae and had gross hematuria. The patient was seen by Dr. García with Urology. The patient was started on bladder irrigation and his urine cleared up. The patient's Puentes cathet er was then discontinued and has not had any difficulties since. The patient will be discharged to [facility] once accepted. Medications: As per medication reconciliation list. Followup: Follow up with primary care physician in 2-3 days. Follow up with Dr. Rinaldi, orthoped ics, in 7-10 days for a wound check. Follow up with Dr. García, urologist, in 2-4 weeks. Return to E for worsening condition. Activity: As per rehab. Physical Examination: General: Awake, alert, oriented x3, not in any acute distress, elderly male. CV: S1, S2. Regular rate and rhythm. Peripheral pulses present. Respiratory: Moving air well bilaterally. No wheezing. Gastrointestinal: Abdomen is soft, nontender, nondistended. Positive bowel sounds. Extremities: No clubbing, cyanosis, edema. Musculoskeletal: Right hip incision site clean, dry, intact. Skin: The patient does have laceration to the right elbow, improving, and alise on the scalp. Neurologic: Nonfocal. Time Spent: Total time spent discharging the patient was 33 minutes. AMANDA Voice ID: [id number] Report ID: [id number]
== END 2018-11-04 17:38 | DRG 480 ==
LOC: ER 09:01 → ERHOLD 13:08 → 2ND 14:23
PROVIDERS: ADMIT Family Medicine; ATTEND Family Medicine
PROC: 0JQ00ZZ Repair Scalp Subcutaneous Tissue and Fascia, Open Approach (ICD-10-PCS; principal; 2018-10-23)
PROC: 0QS606Z Reposition Right Upper Femur with Intramedullary Internal Fixation Device, Open Approach (ICD-10-PCS; 2018-10-24)
PROC: 0QS6XZZ Reposition Right Upper Femur, External Approach (ICD-10-PCS; 2018-10-24)
DX: S72.141A Displaced intertrochanteric fracture of right femur, initial encounter for closed fracture (principal); E43 Unspecified severe protein-calorie malnutrition; N30.01 Acute cystitis with hematuria; D62 Acute posthemorrhagic anemia; W01.0XXA Fall on same level from slipping, tripping and stumbling without subsequent striking against object, initial encounter; Y93.01 Activity, walking, marching and hiking; Y92.015 Private garage of single-family (private) house as the place of occurrence of the external cause; S01.01XA Laceration without foreign body of scalp, initial encounter; S50.811A Abrasion of right forearm, initial encounter; S50.311A Abrasion of right elbow, initial encounter; I10 Essential (primary) hypertension; D64.9 Anemia, unspecified; I48.0 Paroxysmal atrial fibrillation; B96.89 Other specified bacterial agents as the cause of diseases classified elsewhere; Z68.31 Body mass index [BMI] 31.0-31.9, adult
CPT/HCPCS: 36415; 70450; 72125; 72170; 73530; 80048; 80053; 81001; 81003; 81015; 83735; 84100; 85025; 85610; 85730; 86850; 86900; 86901; 87077; 87086; 87088; 87186; 90714; 93005; 94760; 96374; 97110; 97116; 97163; 97167; 97530; 99285; J0690; J0696; J1650; J2175; J2270; J2405; J2704; J3010; J7030